=== PATIENT | female | born 2000 | race Caucasian/White ===

== ENCOUNTER 2022-07-23 09:49 | Emergency (ER) | payer BC ==
[~2022-07-23] VITALS: Ht 162.6 cm; Wt 50.4 kg
[2022-07-23 12:06] VITALS: BP 150/108
== END 2022-07-23 12:11 | disposition home or self-care (01) ==
LOC: M ED 09:49
DX: S40.022A Contusion of left upper arm, initial encounter (principal); M25.532 Pain in left wrist; W19.XXXA Unspecified fall, initial encounter; F41.9 Anxiety disorder, unspecified; F32.A Depression, unspecified; F17.200 Nicotine dependence, unspecified, uncomplicated; G90.A Postural orthostatic tachycardia syndrome [POTS]; Z88.8 Allergy status to other drugs, medicaments and biological substances

== ENCOUNTER → 2022-07-25 | Outpatient (CLI) | payer BC | LOC: M RAD 18:00 | PROVIDERS: ATTEND Physician Assistant Medical | DX: M25.532 Pain in left wrist (principal) ==